=== PATIENT | male | born 1955 | race Caucasian/White ===

== ENCOUNTER → 2021-07-13 | Outpatient (CLI) | payer MEDICARE, OTHER ==
--- NOTE | 2021-07-14 05:36 | US ---
EXAMINATION TYPE: US kidneys/renal and bladder DATE OF EXAM: 07/13/2021 COMPARISON: NONE CLINICAL HISTORY: R82.89. Urine cytology abnormal. Hx stones. EXAM MEASUREMENTS: Right Kidney: 11.7 x 5.7 x 5.0 cm Left Kidney: 11.4 x 5.6 x 6.3 cm Post Void Residual Volume: 17.6 mL Right Kidney: Hyperechoic focus seen lower pole: 0.8 x 0.7 x 0.6 cm. Possible dilated collecting sys tem adjacent to hyperechoic area- Hypoechoic area seen lower pole: 1.4 x 1.9 x 1.5 cm. Left Kidney: Hypoechoic-anechoic area seen lower pole: 1.5 x 1.7 x 2.2 cm. Bladder: Appears anechoic. Bilateral Jets seen: Yes Normal Post Void Residual: Yes When scanning right kidney adjacent liver is heterogeneously hyperechoic. There is 6 mm shadowing hyp erechoic focus lower pole right kidney suspicious for nonobstructing calculus. There is additional damon spected 6 mm calculus lower pole level right kidney near focal calyceal dilatation. No right-sided hy dronephrosis. Left kidney shows hypoechoic anechoic oval 1.5 x 2.2 cm area with increased through transmission favo ring simple thin-walled cyst but suboptimally evaluated on this study. No left-sided hydronephrosis. Urinary bladder is adequately distended without intraluminal mass or wall thickening. Bilateral dista l ureter jets are seen. After voiding tiny amount of residual urine calculated at just under 20 cc. IMPRESSION: Right-sided nonobstructing renal calculi are felt present. No Hydronephrosis seen bilater ally. Probable 2.0 cm simple appearing thin-walled cyst left kidney. Above findings can be better delbert luated and confirmed with CT exam if desired.
== END | disposition home or self-care (01) ==
LOC: RADUSWWP 15:30
PROVIDERS: ATTEND Family Medicine
DX: N20.0 Calculus of kidney (principal)
CPT/HCPCS: 76770

== ENCOUNTER → 2021-09-08 | Outpatient (CLI) | payer MEDICARE, OTHER ==
--- NOTE | 2021-09-08 11:43 | CT ---
EXAMINATION TYPE: CT abdomen wo con DATE OF EXAM: 09/08/2021 COMPARISON: Ultrasound dated 07/13/2021 HISTORY: Kidney stone CT DLP: 1331.80 mGycm Automated exposure control for dose reduction was used. TECHNIQUE: Helical acquisition of images was performed from the lung bases through the top of iliac crest to include entire abdomen. CONTRAST: Performed without Oral Contrast and without IV contrast. FINDINGS: LUNG BASES: Bilateral lower lobar dependent densities and subsegmental pulmonary atelectasis/reticula tions. 5 mm nodule is seen in the left lower lobe with 6 mm pleural-based nodule in the right lung ba se posteriorly. Recommend follow-up CT scan in 3-6 months for reassessment. Coronary arterial calcifi cations. LIVER/GB: Bulky liver measuring 17.9 cm. No definite hepatic focal lesion. Unremarkable gallbladder. PANCREAS: No significant abnormality is seen. SPLEEN: Increased AP dimension of the spleen measuring 15.4 cm. No definite splenic focal lesion. ADRENALS: No significant abnormality is seen. KIDNEYS: Right lower calyceal elongated stone measuring 7 x 8 x 17 mm. 4 mm stone is seen at the midp ole of the right kidney. No other definite radiodense renal, ureteric or urinary bladder calculi. No hydroureter or hydronephrosis. Suspected left lower pole renal cyst measuring 18 mm, suboptimally ass essed by this nonenhanced CT scan. BOWEL: Unremarkable nondistended stomach, duodenum and small bowel. Scattered uncomplicated colonic diverticulosis with moderate fecal loading of the colon. Normal appendix. LYMPH NODES: No pathologically enlarged abdominal or pelvic lymph nodes. OSSEOUS STRUCTURES: Degenerative changes at L1-2 and L2-3 levels. No aggressive bone lesion. FREE AIR: No free air is visualized. OTHER: Scattered arterial atherosclerotic calcification. No sizable ascites. Bilateral fat-containing inguinal hernias, larger on the right side with tethering of a small portion of the urinary bladder towards the right hernia. IMPRESSION: Right renal calculi as described above, for urology consultation. Suspected left renal cyst, suboptim ally assessed by this CT scan. No hydroureter or hydronephrosis bilaterally. Bilateral inguinal hernias larger on the right side with tethering of a small portion of the urinary bladder towards the right inguinal hernia. Please correlate with urinalysis results. Enlarged liver and spleen, please correlate clinically. Other findings as described above.
== END | disposition home or self-care (01) ==
LOC: RADCTMAIN 08:54
PROVIDERS: ATTEND Family Medicine
DX: N20.0 Calculus of kidney (principal); K40.20 Bilateral inguinal hernia, without obstruction or gangrene, not specified as recurrent; R16.2 Hepatomegaly with splenomegaly, not elsewhere classified; K57.30 Diverticulosis of large intestine without perforation or abscess without bleeding; I25.10 Atherosclerotic heart disease of native coronary artery without angina pectoris; J98.11 Atelectasis; J98.4 Other disorders of lung
CPT/HCPCS: 74150

== ENCOUNTER 2021-10-01 12:44 | Day surgery (SDC) | payer MEDICARE, OTHER ==
[~2021-10-01 12:44] MED LIST: LIDOCAINE 1% (10MG/ML) FOR IV START INTRADERMA PRN
[2021-10-01 13:32] VITALS: RESP 16; TEMP 97.2
[2021-10-01] MEDS: LACTATED RINGERS 1,000 ML IV SCH ×2 (13:35→14:07)
[2021-10-01] MEDS ORDERED: PROPOFOL 10 MG/ML 20 ML VIAL IV ONE (14:14)
--- NOTE | 2021-10-01 14:32 | P.PCN ---
Date of Procedure: 10/01/21 Procedure(s) Performed: BRIEF HISTORY: Patient is a 66-year-old pleasant white male scheduled for an elective colonoscopy as a part of evaluation of prior history of colon polyps and family history of colon cancer diagnosed in his father at age 65. PROCEDURE PERFORMED: Colonoscopy with snare polypectomy. PREOPERATIVE DIAGNOSIS: History of colon polyps and family history of colon cancer. IV sedation per Anesthesia. PROCEDURE: After informed consent was obtained, the patient, was brought into the endoscopy unit. IV sedation was administered by Anesthesia under continuous monitoring. Digital rectal examination was normal. Initially the Olympus CF-160 flexible video colonoscope was then inserted in the rectum, gradually advanced into the cecum without any difficulty. Careful examination was performed as the scope was gradually being withdrawn. Ileocecal valve and the appendiceal orifice were visualized and appeared normal. Prep was excellent. Mucosa of the cecum, ascending colon, appeared normal. The transverse colon were 2 sessile polyps measuring 5 mm in size removed by snare polypectomy. In the descending colon there was a 4 mm polyp removed by snare polypectomy. Rest of the transverse colon, descending colon, sigmoid colon, and rectum appeared normal. Scattered sigmoid diverticulosis. Retroflexion was performed in the rectum and no lesions were seen. The patient tolerated the procedure well. IMPRESSION: 5 mm 2 transverse colon polyp status post polypectomy 4 mm descending colon polyp status post snare polypectomy Scattered sigmoid diverticulosis RECOMMENDATIONS: Findings of this examination were discussed with the patient as well as his family. He was advised to follow with the biopsy result. If the biopsy results adenoma he can have a repeat colonoscopy in 5 years..
[2021-10-01 14:50] VITALS: BP 99/71; PULSE 54
== END 2021-10-01 15:09 | disposition home or self-care (01) ==
LOC: ORWHC2ENDO 12:44
PROVIDERS: ATTEND Internal Medicine Gastroenterology
DX: Z12.11 Encounter for screening for malignant neoplasm of colon (principal); D12.0 Benign neoplasm of cecum; D12.4 Benign neoplasm of descending colon; K57.30 Diverticulosis of large intestine without perforation or abscess without bleeding; Z86.010 Personal history of colon polyps; Z83.71 Family history of colonic polyps; Z87.442 Personal history of urinary calculi; Z96.60 Presence of unspecified orthopedic joint implant; M19.90 Unspecified osteoarthritis, unspecified site
CPT/HCPCS: 88305; 45385; J2704